=== PATIENT | female | born 1990 | race Asian ===

== ENCOUNTER → 2016-05-28 | Outpatient (CLI) | payer BC ==
[~2016-05-28] MED LIST: DESYREL 50MG50 MG PO; KLONOPIN 0.5MG0.5 MG PO; ZOLOFT 50MG50 MG PO
== END ==
LOC: BHSO 09:22
DX: F41.1 Generalized anxiety disorder (principal)

== ENCOUNTER → 2016-07-03 | Outpatient (CLI) | payer BC | LOC: BHSO 10:17 | DX: F41.1 Generalized anxiety disorder (principal) ==

== ENCOUNTER → 2016-08-27 | Outpatient (CLI) | payer BC | LOC: BHSO 16:20 | DX: F41.1 Generalized anxiety disorder (principal) ==

== ENCOUNTER → 2016-10-17 | Outpatient (CLI) | payer BC | LOC: BHSO 12:37 | DX: F41.1 Generalized anxiety disorder (principal) ==

== ENCOUNTER → 2016-12-14 | Outpatient (CLI) | payer BC | LOC: BHSO 16:04 | DX: F41.1 Generalized anxiety disorder (principal) ==

== ENCOUNTER → 2017-02-21 | Outpatient (CLI) | payer BC | LOC: BHSO 09:07 | DX: F41.1 Generalized anxiety disorder (principal) ==

== ENCOUNTER → 2017-04-18 | Outpatient (CLI) | payer BC | LOC: BHSO 16:19 | DX: F41.1 Generalized anxiety disorder (principal) | CPT/HCPCS: G0463 ==

== ENCOUNTER → 2017-07-16 | Outpatient (CLI) | payer BC | LOC: BHSO 15:56 | DX: F33.41 Major depressive disorder, recurrent, in partial remission (principal) | CPT/HCPCS: G0463 ==

== ENCOUNTER → 2017-10-10 | Outpatient (CLI) | payer BC | LOC: BHSO 16:21 | DX: F33.41 Major depressive disorder, recurrent, in partial remission (principal) | CPT/HCPCS: G0463 ==

== ENCOUNTER → 2018-03-04 | Outpatient (CLI) | payer BC | LOC: BHSO 16:16 | DX: F41.1 Generalized anxiety disorder (principal) | CPT/HCPCS: G0463 ==

== ENCOUNTER → 2018-09-11 | Outpatient (CLI) | payer BC | LOC: BHSO 16:15 | DX: F41.1 Generalized anxiety disorder (principal) | CPT/HCPCS: G0463 ==

== ENCOUNTER → 2019-03-12 | Outpatient (CLI) | payer BC | LOC: BHSO 16:03 | DX: F33.42 Major depressive disorder, recurrent, in full remission (principal) | CPT/HCPCS: G0463 ==